=== PATIENT | female | born 1995 | race Caucasian/White ===

== ENCOUNTER 2018-03-08 11:42 | Emergency (ER) | payer OTHER, SELFPAY ==
[2018-03-08 11:45] VITALS: BP 118/76; PULSE 64; RESP 16; TEMP 36.5; O2SAT 96
--- NOTE | 2018-03-08 12:14 | ED.GENADUL ---
Disposition Clinical Impression: Finger laceration Disposition: HOME Condition: Fair Instructions: Finger Laceration (ED) Additional Instructions: Keep wound clean, dry, covered. Keep current dressing on for the next 24 hours. After that time he may cover with Band-Aid. Try to avoid hyperextension of the affected joint. You may use splint to help with this. Tylenol and/or ibuprofen as needed for discomfort. Return in 1 week for suture removal. Monitor wound for signs of infection including redness, warmth, drainage, fever/chills, increased pain. If these arise please seek care urgently once again. Referrals: [facility] Emergency Dept. [Outside] Forms: Work Release Medical Decision Making - Medical Decision Making Patient presents today with chief complaint of laceration to the right index finger. Sustained this while cleaning a coffee pot at work. What appears in his subcutaneous tissue. No evidence of tendinous involvement or bony involvement. Wounds are actively bleeding. Last tetanus was in 2008, will update this today. Would appears fairly superficial but does open particularly with extension of the affected digit. I discussed closure options the patient and her mother. We decided closure with simple interrupted stitches discussed risk/benefits as well as surgical procedure steps. There was some sending her to proceed. Procedure note: Using standard sterile technique, 2% lidocaine plain was used to infiltrate the area. 4 cc was used. The sufficiently anesthetized the wound. Wound was then copiously irrigated with sterile saline and cleansed with chlorhexidine. Wound is explored to base in bloodless field. No foreign body or debris was noted. No tenderness involvement. Wound is in the subcutaneous tissue. Attention was then turned to closure. #2 simple interrupted sutures were placed using 5-0 nylon. Patient tolerated procedure well. Tetanus updated today. Patient and I discussed wound care in depth. We discussed signs of infection when to seek care urgently once again. She will keep wound clean, dry, covered. We discussed activities that she should avoid that put her at higher risk for infection. A baseball splint was given to the patient to help, particularly at work, to prevent her from over extending the digit. She will return in 1 week for suture removal. We discussed new/worsening symptoms emergency care urgently once again. All of her questions and concerns were addressed and she is in agreement with plan. History of Present Illness - General Chief complaint: Laceration Stated complaint: RIGHT HAND LACERATION Time Seen by Provider: 03/08/18 11:46 Source: patient, family, RN notes reviewed Mode of arrival: ambulatory Limitations: no limitations - History of Present Illness Initial comments: Patient is a 22-year-old left-hand dominant female, accompanied by her mother, her chief complaint of laceration over the palmar side of the MCP joint of the right index finger. She reports a prior to arrival, while at work, she was cleaning a coffee pot. States that she was supporting the bottom the coffee pot with the right hand and had a left hand in the coffee pot. Coffee pot broke and she subsequently cut her finger. Last tetanus was in 2008. She denies other injury the time of the incident. Denies any numbness or tingling. Has good range of motion. Has been applying pressure to the wound. LMP 2 weeks ago. - Related Data Acetaminophen [Tylenol] 650 mg PO PRN PRN 06/18/17 Multivitamin [Gummi Bear Multivitamin] 1 each PO DAILY 03/08/18 Allergies Allergy/AdvReac Type Severity Reaction Status Date / Time cefixime [From Suprax] Allergy Unverified 03/08/18 11:51 sulfamethoxazole Allergy Unverified 03/08/18 11:51 [From Bactrim] trimethoprim [From Bactrim] Allergy Unverified 03/08/18 11:51 Sulfa (Sulfonamide AdvReac Severe Anaphylaxsi Unverified 03/08/18 11:51 Antibiotics) s cut grass Allergy Mild Wheezing Uncoded 03/08/18 11:51 Review of Systems Constitutional: no symptoms reported Respiratory: no symptoms reported Musculoskeletal: as per HPI Skin: as per HPI Neurological: as per HPI Past Medical History - Past Medical History Medical history: no medical history Surgical history: other (T&A) Family history: CAD/[place] (grandparent), cancer (grandparent) - Social History Alcohol use: occasionally Drug use: none Living Situation: lives with parent(s) General Exam - General Limitations: no limitations General appearance: alert, in no apparent distress - Eye Eye exam: Present: normal apperance - Respiratory Respiratory exam: Absent: respiratory distress - Extremities Exam Extremities exam: Present: full ROM, normal capillary refill. Absent: normal inspection (Exam the patient's right upper extremity is significant for a 1 cm linear laceration that runs across the MCP of the index finger. Sensation is intact distal to this. She is full range of motion. Is able to have good flexion against resistance at both the MCP PIP and DIP joints. Motor is into subcutaneous tissue. Unable to visualize any bony involvement or ligamentous injury.), tenderness, joint swelling - Neurological Exam Neurological exam: Present: alert, normal gait - Psychiatric Psychiatric exam: Present: normal affect, normal mood - Skin Skin exam: Absent: intact (As above) Course Vital Signs - 24 hr 03/08/18 11:45 Temperature 36.5 C Pulse 64 Respiratory 16 Rate Blood Pressure 118/76 Pulse Oximetry 96
== END 2018-03-08 12:30 | disposition home or self-care (01) ==
PROVIDERS: Emergency Provider Emergency Medicine; PCP Family Medicine
DX: S65.510A Laceration of blood vessel of right index finger, initial encounter (principal); W25.XXXA Contact with sharp glass, initial encounter
CPT/HCPCS: 12001; 90471

== ENCOUNTER 2018-03-16 08:21 | Emergency (ER) | payer OTHER, SELFPAY ==
--- NOTE | 2018-03-16 08:29 | ED.GENADUL ---
Disposition Clinical Impression: Visit for suture removal Disposition: HOME Condition: Stable Additional Instructions: if there is redness spreading down the hand or up the finger or severe worsening of pain return to the emergency department Medical Decision Making - Medical Decision Making pt here for suture removal which nursing will perform. Wound appears well healed with no evidence of infection at this time and normal rom so doubt tendon injury, will d/c home, return precautions given - Differential Diagnosis suture removal History of Present Illness - General Stated complaint: REMOVAL OF STITCHES Time Seen by Provider: 03/16/18 08:26 Source: patient Mode of arrival: ambulatory Limitations: no limitations - History of Present Illness Initial comments: 22 yo female comes in for removal of stitches. She had them placed on 03/08 after cutting her right hand just proximal to the right index finger. Has some discomfort to the area otherwise no drainage, no significant erythema on exam or warmth, intact sensation and full rom of the finger MD Complaint: suture removal Associated Symptoms: denies other symptoms - Related Data Acetaminophen [Tylenol] 650 mg PO PRN PRN 06/18/17 Multivitamin [Gummi Bear Multivitamin] 1 each PO DAILY 03/08/18 Allergies Allergy/AdvReac Type Severity Reaction Status Date / Time cefixime [From Suprax] Allergy Unverified 03/08/18 11:51 sulfamethoxazole Allergy Unverified 03/08/18 11:51 [From Bactrim] trimethoprim [From Bactrim] Allergy Unverified 03/08/18 11:51 Sulfa (Sulfonamide AdvReac Severe Anaphylaxsi Unverified 03/08/18 11:51 Antibiotics) s cut grass Allergy Mild Wheezing Uncoded 03/08/18 11:51 Review of Systems Constitutional: denies: fever Respiratory: denies: shortness of breath Skin: denies: rash Comment: All other systems reviewed and negative Past Medical History - Past Medical History Medical history: no medical history Surgical history: other (T&A) Family history: CAD/[place] (grandparent), cancer (grandparent) - Social History Alcohol use: occasionally Drug use: none General Exam - General Limitations: no limitations General appearance: alert, in no apparent distress - Head Head exam: Present: atraumatic - Eye Eye exam: Present: normal apperance - ENT ENT exam: Present: mucous membranes moist - Neck Neck exam: Present: normal inspection - Respiratory Respiratory exam: Absent: respiratory distress - Cardiovascular Cardiovascular Exam: Present: regular rate - Extremities Exam Extremities exam: Present: full ROM, normal capillary refill - Neurological Exam Neurological exam: Present: alert, oriented X3 - Skin Skin exam: Present: warm
== END 2018-03-16 08:42 | disposition home or self-care (01) ==
PROVIDERS: Emergency Provider Emergency Medicine; PCP Family Medicine
DX: S65.51 Laceration of blood vessel of other and unspecified finger (principal); W25.XXXD Contact with sharp glass, subsequent encounter; Z48.02 Encounter for removal of sutures

== ENCOUNTER 2018-04-23 16:10 | Outpatient (REF) | payer OTHER, SELFPAY ==
[2018-04-25 14:23] LABS: Chlamydia Result Negative; GC Result Negative; Specimen Description URINE
== END 2018-04-23 16:30 ==
LOC: LBN 16:10
PROVIDERS: PCP Family Medicine; Visit Provider Obstetrics & Gynecology
DX: Z11.3 Encounter for screening for infections with a predominantly sexual mode of transmission (principal)
CPT/HCPCS: 87491; 87591

== ENCOUNTER 2018-07-27 18:26 | Emergency (ER) | payer SELFPAY ==
[2018-07-27 18:37] VITALS: BP 139/77; PULSE 83; RESP 24; TEMP 37; O2SAT 96
--- NOTE | 2018-07-27 19:05 | DI.RAD_ITS ---
SYMPTOMS/DIAGNOSIS: COUGH PA AND LATERAL CHEST: The heart size is normal. Lungs are well inflated and clear. No infiltrate or effusion is seen. IMPRESSION: Negative chest x-ray.
--- NOTE | 2018-07-27 19:07 | W.ED.GENAD ---
Discharge Plan Disposition Patient Disposition: HOME Discharge Details Chief Complaint: RespSymp Clinical Impression: Acute viral syndrome Primary Care Provider: Yusra Moctezuma V ED Provider: Brennen Vela Home Meds and New Rx's Prescriptions: Continued Mirena 20 mcg/24 hr (5 years) intrauterine device 1 insert IY ONCE RF: 0 acetaminophen [Tylenol] 325 MG tablet 650 mg PO PRN PRNRF: 0 pediatric multivitamin [Gummi Bear Multivitamin] 1 EACH tablet,chewable 1 ea PO DAILY RF: 0 Discharge Instructions Instructions: Viral Syndrome (ED) Additional Instructions: Please drink plenty of fluid and allow for plenty of rest over the next few days. Please contact your primary care physician to arrange follow-up. Return to the ER for any worsening or new concerning symptoms. Stand Alone Forms: Work Release Referrals: Yusra Moctezuma MD [Primary Care Provider] - Medical Decision Making 23-year-old female presents with cough, sinus congestion, sneezing, shortness of breath, subjective fever, nausea, vomiting. Patient is saturating well in no respiratory distress but does have intermittent cough. cxr reviewed and interpreted by radiology: Clear lungs I suspect the patient has patient has flu. She is outside treatment window for antiviral medication. Discussed supportive care. Disposition decision was made weighing the risks and benefits of hospitalization versus outpatient treatment, the risk for further decompensation, and the patient's wishes. The patient was stable and requested discharge. Prior to discharge, my usual and customary return precautions were reviewed with the patient - this included follow-up instructions and reason to return to the emergency department if condition worsens, does not improve as expected, or other new concerns arise. HPI General Mode of arrival: ambulatory. Date/Time Provider Initiated Documentation: 07/27/18 18:51. Limitations to Documentation: no limitations. Information obtained by: patient and family (mother). HPI Narrative: 23-year-old female healthy otherwise healthy, presents with complaint of generally not feeling well. Patient notes that for the past 4 days she has had generalized illness that includes cough productive of yellow-green sputum, subjective fever, sore throat, sinus congestion, nausea and vomiting. Symptoms have been moderate and worsening. Today she had associated shortness of breath. No recent long distance travel or tick bites. She did not have a flu shot this year. Related Data Home Medications Medication Instructions Recorded Confirmed acetaminophen [Tylenol] 650 mg PO PRN PRN 06/18/17 07/27/18 pediatric multivitamin [Gummi Bear 1 ea PO DAILY 03/08/18 07/27/18 Multivitamin] levonorgestrel 20 mcg/24 hr (5 1 insert IY ONCE 04/23/18 07/27/18 years) intrauterine device Allergies Allergy/AdvReac Type Severity Reaction Status Date / Time cefixime [From Suprax] Allergy Verified 07/27/18 18:41 sulfamethoxazole Allergy Verified 07/27/18 18:41 [From Bactrim] trimethoprim [From Bactrim] Allergy Verified 07/27/18 18:41 Sulfa (Sulfonamide AdvReac Severe Anaphylaxsi Verified 07/27/18 18:41 Antibiotics) s cut grass Allergy Mild Wheezing Uncoded 07/27/18 18:41 General Stated Complaint: RespSymp ESCOBAR: 4 Review of Systems ENT Reports nasal congestion and Reports sore throat Cardiovascular Reports dyspnea Respiratory Reports cough and Reports dyspnea PFSH Medical History IUD surveillance (Acute) Social History adopted: No caregiver/support person: No foster care: No household members: family number of children: 0 current occupational status: employed current occupation: elder care Smoking/Tobacco Use Status: Current-Occasional alcohol intake: never substance use type: marijuana seatbelt use: always Female Reproductive History Menstrual control method: progestin IUCD (Lot# [id number] EXP AUG 2020) History History 1 Para 0 Hx # Term Pregnancies Multiple births Hx # Pregnancies Ectopic pregnancies AB induced Hx Number of Living Children AB spontaneous Exam Const General: cooperative and no acute distress HENMT Head: normocephalic and atraumatic Mouth: moist mucous membranes Throat: uvula midline, posterior oropharynx abnormal erythema; no exudates and no uvular edema Eyes Conjunctivae: normal conjunctivae Sclera: normal sclerae Neck Neck: trachea midline and supple Resp Auscultation: no rales, rhonchi and no wheezes Cardio Jugular venous pressure: no JVD Rate: regular rate and not tachycardic Rhythm: regular rhythm GI Palpation: soft, not firm, no guarding, no masses, not rigid and nontender Skin General skin exam: no rashes or lesions noted Neuro General: alert, awake, oriented x3 and tone normal Extrem General: no edema Psych Appearance: grossly normal Mental Status: mental status grossly normal Course Vital Signs Temperature 37 C 07/27/18 18:37 Pulse 83 07/27/18 18:37 Respiratory Rate 24 07/27/18 18:37 Blood Pressure 139/77 07/27/18 18:37 Pulse Oximetry 96 07/27/18 18:37 Temperature 37 C 07/27/18 18:37 Temperature Source Skin 07/27/18 18:37 Pulse 83 07/27/18 18:37 Respiratory Rate 24 07/27/18 18:37 Respiratory Effort 07/27/18 18:42 Respiratory Depth Normal 07/27/18 18:42 Blood Pressure 139/77 07/27/18 18:37 Blood Pressure Position Sitting 07/27/18 18:37 Pulse Oximetry 96 07/27/18 18:37 Oxygen Delivery Method Room Air 07/27/18 18:37 Oxygen Flow Rate 0 07/27/18 18:37 Pain Level 7 07/27/18 18:37
--- NOTE | 2018-07-27 19:11 | ED.GENADUL_ITS ---
Discharge Plan Disposition Patient Disposition: HOME Discharge Details Chief Complaint: RespSymp Clinical Impression: Acute viral syndrome Primary Care Provider: Yusra Moctezuma V ED Provider: Brennen Vela Home Meds and New Rx's Prescriptions: Continued Mirena 20 mcg/24 hr (5 years) intrauterine device 1 insert IY ONCE RF: 0 acetaminophen [Tylenol] 325 MG tablet 650 mg PO PRN PRNRF: 0 pediatric multivitamin [Gummi Bear Multivitamin] 1 EACH tablet,chewable 1 ea PO DAILY RF: 0 Discharge Instructions Instructions: Viral Syndrome (ED) Additional Instructions: Please drink plenty of fluid and allow for plenty of rest over the next few days. Please contact your primary care physician to arrange follow-up. Return to the ER for any worsening or new concerning symptoms. Stand Alone Forms: Work Release Referrals: Yusra Moctezuma MD [Primary Care Provider] - Medical Decision Making 23-year-old female presents with cough, sinus congestion, sneezing, shortness of breath, subjective fever, nausea, vomiting. Patient is saturating well in no respiratory distress but does have intermittent cough. cxr reviewed and interpreted by radiology: Clear lungs I suspect the patient has patient has flu. She is outside treatment window for antiviral medication. Discussed supportive care. Disposition decision was made weighing the risks and benefits of hospitalization versus outpatient treatment, the risk for further decompensation, and the patient's wishes. The patient was stable and requested discharge. Prior to discharge, my usual and customary return precautions were reviewed with the patient - this included follow-up instructions and reason to return to the emergency department if condition worsens, does not improve as expected, or other new concerns arise. HPI General Mode of arrival: ambulatory . Date/Time Provider Initiated Documentation: 07/27/18 18:51 . Limitations to Documentation: no limitations . Information obtained by: patient and family (mother) . HPI Narrative: 23-year-old female healthy otherwise healthy, presents with complaint of generally not feeling well. Patient notes that for the past 4 days she has had generalized illness that includes cough productive of yellow-green sputum, subjective fever, sore throat, sinus congestion, nausea and vomiting. Symptoms have been moderate and worsening. Today she had associated shortness of breath. No recent long distance travel or tick bites. She did not have a flu shot this year. Related Data Home Medications Medication Instructions Recorded Confirmed acetaminophen [Tylenol] 650 mg PO PRN PRN 06/18/17 07/27/18 pediatric multivitamin [Gummi Bear 1 ea PO DAILY 03/08/18 07/27/18 Multivitamin] levonorgestrel 20 mcg/24 hr (5 1 insert IY ONCE 04/23/18 07/27/18 years) intrauterine device Allergies Allergy/AdvReac Type Severity Reaction Status Date / Time cefixime [From Suprax] Allergy Verified 07/27/18 18:41 sulfamethoxazole Allergy Verified 07/27/18 18:41 [From Bactrim] trimethoprim [From Bactrim] Allergy Verified 07/27/18 18:41 Sulfa (Sulfonamide AdvReac Severe Anaphylaxsi Verified 07/27/18 18:41 Antibiotics) s cut grass Allergy Mild Wheezing Uncoded 07/27/18 18:41 General Stated Complaint: RespSymp ESCOBAR: 4 Review of Systems ENT Reports nasal congestion and Reports sore throat Cardiovascular Reports dyspnea Respiratory Reports cough and Reports dyspnea PFSH Medical History IUD surveillance (Acute) Social History adopted: No caregiver/support person: No foster care: No household members: family number of children: 0 current occupational status: employed current occupation: elder care Smoking/Tobacco Use Status: Current-Occasional alcohol intake: never substance use type: marijuana seatbelt use: always Female Reproductive History Menstrual control method: progestin IUCD (Lot# [id number] EXP AUG 2020) History History 1 Para 0 Hx # Term Pregnancies Multiple births Hx # Pregnancies Ectopic pregnancies AB induced Hx Number of Living Children AB spontaneous Exam Const General: cooperative and no acute distress HENMT Head: normocephalic and atraumatic Mouth: moist mucous membranes Throat: uvula midline, posterior oropharynx abnormal erythema; no exudates and no uvular edema Eyes Conjunctivae: normal conjunctivae Sclera: normal sclerae Neck Neck: trachea midline and supple Resp Auscultation: no rales, rhonchi and no wheezes Cardio Jugular venous pressure: no JVD Rate: regular rate and not tachycardic Rhythm: regular rhythm GI Palpation: soft, not firm, no guarding, no masses, not rigid and nontender Skin General skin exam: no rashes or lesions noted Neuro General: alert, awake, oriented x3 and tone normal Extrem General: no edema Psych Appearance: grossly normal Mental Status: mental status grossly normal Course Vital Signs Temperature 37 C 07/27/18 18:37 Pulse 83 07/27/18 18:37 Respiratory Rate 24 07/27/18 18:37 Blood Pressure 139/77 07/27/18 18:37 Pulse Oximetry 96 07/27/18 18:37 Temperature 37 C 07/27/18 18:37 Temperature Source Skin 07/27/18 18:37 Pulse 83 07/27/18 18:37 Respiratory Rate 24 07/27/18 18:37 Respiratory Effort 07/27/18 18:42 Respiratory Depth Normal 07/27/18 18:42 Blood Pressure 139/77 07/27/18 18:37 Blood Pressure Position Sitting 07/27/18 18:37 Pulse Oximetry 96 07/27/18 18:37 Oxygen Delivery Method Room Air 07/27/18 18:37 Oxygen Flow Rate 0 07/27/18 18:37 Pain Level 7 07/27/18 18:37
--- NOTE | 2018-07-27 20:19 | DI.VRAD_ITS ---
EXAM: XR Chest, 2 Views EXAM DATE/TIME: 07/27/2018 7:07 PM CLINICAL HISTORY: 23 years old, female; Signs and symptoms; Cough TECHNIQUE: XR of the chest, 2 views. COMPARISON: CR ABD FLAT UPRIGHT PA CHEST 08/30/2011 9:25 PM FINDINGS: Lungs: Clear lungs. Pleural space: No pneumothorax. No sizable pleural effusion. Heart/Mediastinum: No cardiomegaly. Bones/joints: Unremarkable. IMPRESSION: Clear lungs. Dictated and Authenticated by: Miky Roberson MD. Ordering:CLEVELAND Hutton MD
== END 2018-07-27 20:32 | disposition home or self-care (01) ==
PROVIDERS: Emergency Provider Student in an Organized Health Care Education/Training Program; PCP Family Medicine
DX: R05 Cough (principal); R09.81 Nasal congestion; R50.9 Fever, unspecified; R11.2 Nausea with vomiting, unspecified; B34.9 Viral infection, unspecified
CPT/HCPCS: 99283; 71046

== ENCOUNTER 2018-08-01 11:45 | Outpatient (REF) | payer OTHER, SELFPAY ==
--- NOTE | 2018-08-01 09:40 | PAPFT_PTH ---
PATIENT: Cathy Aguila LOC: [facility] U#:[id number] AGE/SX: 23/F ROOM: RE08/01/[address]: MOISÉS Khan : 1995 BED: DIS: 08/01/2018 SPEC #: [id number] RECD: 08/01/18 12:56 STATUS: DARIANA RENahed #: [id number] RAINA: 08/01/18 09:[address]: Divine Latham DEPT: [facility] Cytology RECD BY: Angela Christianson ENTERED: 08/01/18 12:57 SP TYPE: PAPFT OTHR DR: Yusra Moctezuma V Tissues: 1 - CX/ENDOCX FOR PAP SMEARS Procedures: PAP THIN PREP/[facility] Screening Comments: [id number] (UNSATISFACTORY FOR EVALUATION)
== END 2018-08-01 12:05 ==
LOC: LBN 11:45
PROVIDERS: PCP Family Medicine; Visit Provider Nurse Practitioner Family
DX: Z12.4 Encounter for screening for malignant neoplasm of cervix (principal)
CPT/HCPCS: 88142

== ENCOUNTER 2018-10-10 23:15 | Emergency (ER) | payer BC, SELFPAY ==
[2018-10-10 23:18] VITALS: BP 154/88; PULSE 82; RESP 16; TEMP 36.8; O2SAT 97
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
--- NOTE | 2018-10-10 23:54 | DI.RAD_ITS ---
SYMPTOM/DIAGNOSIS: TRAUMA, PUNCHED WALL, PAIN LEFT HAND: No acute fracture or dislocation.
[2018-10-11] MEDS: Ibuprofen 600 MG TAB PO (00:02)
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
== END 2018-10-11 00:35 | disposition home or self-care (01) ==
PROVIDERS: Emergency Provider Emergency Medicine; PCP Family Medicine
DX: S60.222A Contusion of left hand, initial encounter (principal); W22.8XXA Striking against or struck by other objects, initial encounter
CPT/HCPCS: 81025; 99283; 73130; 99282

== ENCOUNTER 2019-04-18 17:04 | Emergency (ER) | payer BC, SELFPAY ==
[2019-04-18 17:08] VITALS: BP 142/83; PULSE 110; RESP 16; TEMP 38; O2SAT 98
--- NOTE | 2019-04-18 17:11 | ED.GENADUL_ITS ---
Discharge Plan Disposition Patient Disposition: HOME Condition: Stable Discharge Details Chief Complaint: RespSymp Clinical Impression: Acute bronchitis with bronchospasm Primary Care Provider: Yusra Moctezuma V ED Provider: Ortiz Canela Home Meds and New Rx's Prescriptions: New azithromycin 250 mg tablet 250 mg PO DAILY 4 Days Qty: 4 RF: 0 No Action levonorgestrel-ethinyl estrad [[place] 28] 0.15-0.03 mg tablet 1 tab PO DAILY Qty: 84 RF: 5 acetaminophen [Tylenol] 325 MG tablet 650 mg PO PRN PRNRF: 0 pediatric multivitamin [Gummi Bear Multivitamin] 1 EACH tablet,chewable 1 ea PO DAILY RF: 0 Discharge Instructions Instructions: Acute Bronchitis (ED) Additional Instructions: Home to rest this evening. Continue small, frequent sips of fluids to maintain hydration Tylenol and/or ibuprofen as needed for discomfort. Take antibiotics as prescribed. Return for any acute concern Medical Decision Making 23-year-old female presents from home with 3 days of cough, congestion, production of green and yellow sputum with associated subjective fever and chills. She has a high resting pulse but is taking liquids by mouth without difficulty. She is noted to have a temperature of 38.0. She has expiratory wheeze present on exam, but no focal rhonchi. She does have a history of reactive airway disease in the past. Consistent with bronchitis with bronchospasm. Provided an albuterol inhaler, initial dose of azithromycin started, patient referred for outpatient management. She understands plan of care and return precautions. HPI General Mode of arrival: ambulatory . Date/Time Provider Initiated Documentation: 04/18/19 17:05 . Limitations to Documentation: no limitations . Information obtained by: patient . History of Present Illness 23 year old F presents to the emergency department with the chief complaint of Cough and fever with production of sputum, Quality is described as constant, and is localized to the chest. Patient reports no radiation. Patient started experiencing this day(s) and it has been intermittent. No relieving factors improve symptom(s), No exacerbating factors reported . Patient notes fever/chills; denies nausea/vomiting. Patient did receive the following treatments prior to arrival, none Related Data Home Medications Medication Instructions Recorded Confirmed acetaminophen [Tylenol] 650 mg PO PRN PRN 06/18/17 12/03/18 pediatric multivitamin [Gummi Bear 1 ea PO DAILY 03/08/18 12/03/18 Multivitamin] levonorgestrel 0.15 mg-ethinyl 1 tab PO DAILY #84 tab 12/03/18 12/03/18 estradiol 0.03 mg tablet azithromycin 250 mg PO DAILY 4 Days #4 tab 04/18/19 Previous Rx's Medication Instructions Recorded levonorgestrel 0.15 mg-ethinyl 1 tab PO DAILY #84 tab 12/03/18 estradiol 0.03 mg tablet azithromycin 250 mg PO DAILY 4 Days #4 tab 04/18/19 Allergies Allergy/AdvReac Type Severity Reaction Status Date / Time Sulfa (Sulfonamide Allergy Severe Anaphylaxsi Verified 12/03/18 08:37 Antibiotics) s cefixime [From Suprax] Allergy Verified 12/03/18 08:27 sulfamethoxazole Allergy Verified 12/03/18 08:27 [From Bactrim] trimethoprim [From Bactrim] Allergy Verified 12/03/18 08:27 cut grass Allergy Mild Wheezing Uncoded 12/03/18 08:27 General Stated Complaint: RespSymp ESCOBAR: 3 Review of Systems Review of Systems Narrative: 6 systems reviewed and otherwise negative [facility] Medical History IUD surveillance (Acute) Family History Maternal Grandmother Breast cancer Paternal Grandmother Breast cancer Social History Smoking/Tobacco Use Status: Never Smokeless tobacco user: other Alcohol Intake: never Drug use: Occasionally Substance use type: marijuana Adopted: No Caregiver/Support person: No Foster care: No Household members: family Number of Children: 0 current occupation: elder care Current gender identity: female Seatbelt use: always Do you feel safe at home: Yes Do you feel safe in your relationship?: Yes Female Reproductive History Menstrual control method: progestin IUCD (Lot# [id number] EXP AUG 2020) History History 1 Para 0 Hx # Term Pregnancies Multiple births Hx # Pregnancies Ectopic pregnancies AB induced Hx Number of Living Children AB spontaneous Exam Narrative Exam Narrative: GEN: awake, alert, oriented 3. Pleasant, well groomed, interactive. HEAD: Normocephalic, atraumatic ENT: Mucous membranes moist, oropharynx unremarkable, External ear exam unremarkable EYES: PERRL, EOMI NECK: Full ROM, no CORDELL, no menigismus CHEST/RESP: Nontender, few end expiratory wheeze present, cough noted CARDIOVASCULAR: RRR, no murmur, rub james. 2+ Rad pulse bilateral ABDOMEN: Soft, nontender, no mass. +Bowel sounds EXT: Full ROM, no edema, no rash Neuro: Grossly normal neurologic exam, conversant, interactive. Psych: Speech fluent, thoughts congruent, affect normal Course Vital Signs Vital signs: Vital Signs Temperature 38.0 C H 04/18/19 17:08 Pulse 110 H 04/18/19 17:08 Respiratory Rate 16 04/18/19 17:08 Blood Pressure 142/83 H 04/18/19 17:08 Pulse Oximetry 98 04/18/19 17:08 Temperature 38.0 C H 04/18/19 17:08 Temperature Source Tympanic 04/18/19 17:08 Pulse 110 H 04/18/19 17:08 Respiratory Rate 16 04/18/19 17:08 Blood Pressure 142/83 H 04/18/19 17:08 Pulse Oximetry 98 04/18/19 17:08 Oxygen Delivery Method Room Air 04/18/19 17:08 Oxygen Flow Rate 0 04/18/19 17:08 Pain Level 6 04/18/19 17:08
[2019-04-18] MEDS: Acetaminophen 500 MG TAB 1000 MG PO (17:40)
[2019-04-18] MEDS: Azithromycin 250 MG TAB 500 MG PO (17:40)
[2019-04-18] MEDS: Albuterol HFA 8 GM 60 PUFF INH IH (17:40)
== END 2019-04-18 18:10 | disposition home or self-care (01) ==
PROVIDERS: Emergency Provider Emergency Medicine; PCP Family Medicine
DX: J20.9 Acute bronchitis, unspecified (principal)
CPT/HCPCS: 94640; 99283

== ENCOUNTER 2023-02-12 12:58 | Outpatient (REF) | payer BC, SELFPAY ==
--- NOTE | 2023-02-12 09:15 | PAPFT_PTH ---
PATIENT: Cathy Aguila LOC: [facility]#:[id number] AGE/SX: 27/F ROOM: RE02/12/[address]: Cedric Mccracken : 1995 BED: DIS: 02/12/2023 SPEC #: [id number] RECD: 02/12/23 17:19 STATUS: DARIANA REQ #: [id number] RAINA: 02/12/23 09:[address]: Cedric Mccracken DEPT: [facility] Cytology RECD BY: Gabby Lugo ENTERED: 02/12/23 17:20 SP TYPE: PAPFT OTHR DR: Yusra Moctezuma V Tissues: 1 - CX/ENDOCX FOR PAP SMEARS Procedures: PAP THIN PREP/[facility] Screening Comments: [id number] (CHLAMYDIA/GC)
[2023-02-12 16:41] LABS: ALT 31 U/L (14-59); AST 17 U/L (15-37); Albumin 4.1 g/dL (3.4-5.0); Alkaline Phosphatase 59 U/L (46-116); Anion Gap 10.3 mmol/L (3-11); BUN 15 mg/dL (7-18); Bilirubin, Total 0.4 mg/dL (0.2-1.0); CO2 23.7 mmol/L (21.0-32.0); CREATININE 0.7 mg/dL (0.55-1.02); Calcium 8.9 mg/dL (8.5-10.1); Calculated LDL 112 mg/dL (<100); Chloride 106 mmol/L (98-107); Cholesterol 200 mg/dL (<200); Estimated GFR 123.01 (mL/min/1.73m2); Glucose 108 mg/dL (74-106); HDL Cholesterol 53 mg/dL (40-60); Potassium 3.9 mmol/L (3.5-5.1); Sodium 140 mmol/L (136-145); Total Protein 7.8 g/dL (6.4-8.2); Triglyceride 176 mg/dL (<150)
[2023-02-13 13:32] LABS: Chlamydia Result Negative (Negative); GC Result Negative (Negative)
== END 2023-02-12 12:59 | disposition home or self-care (01) ==
LOC: NCHCN 12:58
PROVIDERS: PCP Family Medicine; Visit Provider Physician Assistant Medical
DX: Z01.419 Encounter for gynecological examination (general) (routine) without abnormal findings (principal); Z00.00 Encounter for general adult medical examination without abnormal findings
CPT/HCPCS: 80053; 80061; 87491; 87591; 88142

== ENCOUNTER 2024-11-17 11:49 | Outpatient (REF) | payer OTHER, SELFPAY ==
[2024-11-17 15:18] LABS: Abs Immature Grans 0.01 10^3/uL (0.0-0.06); Absolute Basophil Count 0.05 10^3/uL (0.0-0.2); Absolute Eosinophil Count 0.15 10^3/uL (0.0-0.7); Absolute Lymphocyte Count 2.69 10^3/uL (1.2-3.4); Absolute Monocyte Count 0.66 10^3/uL (0.1-0.8); Absolute Neutrophil Count 5.02 10^3/uL (1.2-6.7); Basophils % 0.6 %; Eosinophils % 1.7 %; HCT 42.1 % (36.0-46.0); HGB 14.4 g/dL (11.2-15.7); Immature Grans % 0.1 %; Lymphocytes % 31.4 %; MCH 30.3 pg (27.0-33.0); MCHC 34.2 % (32.0-36.0); MCV 88 fL (80-95); MPV 10.5 fL (8.0-11.0); Monocytes % 7.7 %; Neutrophils % 58.5 %; Platelet Count 371 10^3/uL (130-400); RBC 4.76 10^6/uL (3.93-5.22); RDW 12.8 % (11.7-14.6); RDW-SD 41.6 fL; WBC 8.58 10^3/uL (4.4-10.8)
[2024-11-17 15:35] LABS: ALT 34 U/L (14-59); AST 16 U/L (15-37); Albumin 4.3 g/dL (3.4-5.0); Alkaline Phosphatase 68 U/L (46-116); Anion Gap 6.7 mmol/L (3-11); BUN 9 mg/dL (7-18); Bilirubin, Total 0.4 mg/dL (0.2-1.0); CO2 28.3 mmol/L (21.0-32.0); CREATININE 0.9 mg/dL (0.55-1.02); Calcium 9.7 mg/dL (8.5-10.1); Chloride 106 mmol/L (98-107); Estimated GFR 89.86 (mL/min/1.73m2); Glucose 92 mg/dL (74-106); Lipase 40 U/L (<78); Potassium 4.3 mmol/L (3.5-5.1); Sodium 141 mmol/L (136-145); Total Protein 7.6 g/dL (6.4-8.2)
== END 2024-11-17 11:50 | disposition home or self-care (01) ==
LOC: NCHCN 11:49
PROVIDERS: PCP Family Medicine; Visit Provider Physician Assistant Medical
DX: R10.11 Right upper quadrant pain (principal)
CPT/HCPCS: 80053; 83690; 85025

== ENCOUNTER 2025-04-26 16:07 | Outpatient (REF) | payer OTHER, SELFPAY ==
[2025-04-26 19:42] LABS: Calculated LDL 106 mg/dL (<100); Cholesterol 172 mg/dL (<200); HDL Cholesterol 37 mg/dL (>or=50); TSH (W/Ref FT4) 1.05 uIU/mL (0.36-3.74); Triglyceride 148 mg/dL (<150)
[2025-04-26 19:55] LABS: Hemoglobin A1C 5.2 % (<5.7)
== END 2025-04-26 16:08 | disposition home or self-care (01) ==
LOC: NCHCN 16:07
PROVIDERS: PCP Family Medicine; Visit Provider Physician Assistant Medical
DX: N92.6 Irregular menstruation, unspecified (principal); Z13.220 Encounter for screening for lipoid disorders; Z13.1 Encounter for screening for diabetes mellitus
CPT/HCPCS: 80061; 83036; 84443